=== PATIENT | male | born 1970 | race Two or more races ===

== ENCOUNTER 2017-12-01 18:26 | Emergency (ER) | payer MEDICAID, SELFPAY ==
[~2017-12-01] VITALS: Ht 165.1 cm; Wt 84.7 kg
[2017-12-01 18:28] VITALS: BP 123/74
[2017-12-01] MEDS ORDERED: HYDROcodone/APAP 5/325 TABLET ONE (19:15)
[2017-12-01] MEDS ORDERED: HYDROcodone/APAP 5/325 TABLET PO ONE (19:30)
== END 2017-12-01 19:51 ==
LOC: ED 19:30
DX: M25.562 Pain in left knee (principal)
CPT/HCPCS: 29505; 99284

== ENCOUNTER 2017-12-29 01:17 | Emergency (ER) | payer MEDICAID ==
[~2017-12-29] VITALS: Ht 165.1 cm; Wt 88.0 kg
[2017-12-29 01:19] VITALS: BP 152/90
[2017-12-29] MEDS ORDERED: IBUPROFEN 200 MG TABLET ONE (01:53)
[2017-12-29] MEDS ORDERED: IBUPROFEN 200 MG TABLET PO ONE (02:00)
== END 2017-12-29 02:04 | disposition home or self-care (01) ==
LOC: ED 02:02
DX: G89.29 Other chronic pain (principal); M25.562 Pain in left knee; Z72.9 Problem related to lifestyle, unspecified
CPT/HCPCS: 99282

== ENCOUNTER 2018-01-08 22:31 | Emergency (ER) | payer MEDICAID ==
[~2018-01-08] VITALS: Ht 170.2 cm; Wt 85.0 kg
[2018-01-08 22:39] VITALS: BP 158/107
== END 2018-01-08 23:26 | disposition home or self-care (01) ==
LOC: ED 23:00
DX: S50.12XA Contusion of left forearm, initial encounter (principal); W22.8XXA Striking against or struck by other objects, initial encounter; Y93.89 Activity, other specified; Y92.009 Unspecified place in unspecified non-institutional (private) residence as the place of occurrence of the external cause; Y99.8 Other external cause status
CPT/HCPCS: 99284

== ENCOUNTER 2018-05-29 15:28 | Emergency (ER) | payer MEDICAID ==
[~2018-05-29] VITALS: Ht 165.1 cm; Wt 82.7 kg
[2018-05-29 15:32] VITALS: BP 154/97
--- NOTE | 2018-05-29 15:40 | NUR ---
RECEIVED BEDSIDE REPORT FROM DAVINA ROBERTSON. ASSUMING PT CARE AT THIS TIME. PER REPORT PT WAS BROUGHT IN VIA EMS WITH C/O ETOH. PT UNABLE TO AMBULATE. PT SITTING ON GURNEY. PT UNABLE TO SPEAK CLEAR SENTENCES AT THIS TIME. PT IN GOWN AND ON MONITORS
--- NOTE | 2018-05-29 15:42 | NUR ---
48 YR OLD MALE ARRIVED VIA EMS, PER REPORT PT UNABLE TO AMBULATE R/T ETOH. PT WITH SLURRED SPEECH, ANSWERING SELECT QUESTIONS, IE: HOW TALL ARE YOU. ADDITIONAL TRIAGE QUESTIONS PT STARES AT RN AND DOES NOT ANSWER QUESTIONS. PT WITH EPISODE OF EMISIS. PT ASSISTED WITH CHANGING GOWN AND LINENS. PT PROVIDED WITH EMESIS BAG. PT WITH ETOH ODOR. CALL LIGHT AT BEDSIDE. REPORT TO KAYCE GHOSH.
--- NOTE | 2018-05-29 17:01 | NUR ---
PT SLEEPING ON GURNEY.PT HAS ETOH ODOR. PT REPOSITIONED FREQUENTLY FOR VSS. PT UNABLE TO SPEAK SENTENCES. NO ACUTE DISTRESS NOTED. RESPS EQUAL AND UNLABORED. WILL CONTINUE TO MONITOR.
--- NOTE | 2018-05-29 18:10 | NUR ---
BREAK RN: PT NOT IN ROOM, GOWN ON GURNEY, PT BELONGINGS GONE.
== END 2018-05-29 18:12 | disposition left against medical advice (07) ==
LOC: ED 18:06
DX: F10.220 Alcohol dependence with intoxication, uncomplicated (principal)
CPT/HCPCS: 99283

== ENCOUNTER 2018-08-24 10:36 | Emergency (ER) | payer MEDICAID ==
[~2018-08-24] VITALS: Ht 182.9 cm; Wt 100.0 kg
--- NOTE | 2018-08-24 11:42 | NUR ---
Patient resting in gurney, appears to be asleep. Continuous blood pressure, SPO2 and cardiac monitoring in place. Sitter within full view of patient for safety.
--- NOTE | 2018-08-24 12:07 | NUR ---
Recieved report from DAVINA Elizabeth. All questions answered. Assuming care of pt.
--- NOTE | 2018-08-24 13:51 | NUR ---
Pt resting on gurney sleeping connected to all monitors. NADN. Pt has even chest rise and fall. Sitter near doorway in direct line of sight for observation.
--- NOTE | 2018-08-24 14:30 | NUR ---
Pt sleeping on gurney connected to all monitors. Sitter near doorway in direct line of sight for observation. NADN. All safety measures in place. No needs expressed. Pt has even chest rise and fall.
--- NOTE | 2018-08-24 15:13 | NUR ---
Report from Giuliano Willis. Sitter at the bedside. NAD noted at this time. Breathing regular and unlabored. Will continue to monitor.
--- NOTE | 2018-08-24 15:43 | NUR ---
PT UP AND AMBULATING WITH STEADY GAIT. ERMD AWARE.
--- NOTE | 2018-08-24 16:15 | NUR ---
PT NO LONGER IN ROOM. PT NO LONGER IN DEPARTMENT. IV WAS REMOVED AFTER PT WAS FOUND TO HAVE A STEADY GAIT.
--- NOTE | 2018-08-24 16:45 | NUR ---
PT STILL NOT BACK IN ROOM AT. ASSUMED PT HAS ELOPPED AT THIS TIME.
[2018-08-24 17:00] VITALS: BP 133/89
== END 2018-08-24 17:02 | disposition home or self-care (01) ==
LOC: ED 13:37
DX: F10.120 Alcohol abuse with intoxication, uncomplicated (principal); I10 Essential (primary) hypertension
CPT/HCPCS: 99283

== ENCOUNTER 2018-12-11 00:36 | Emergency (ER) | payer MEDICAID, OTHER ==
[~2018-12-11] VITALS: Ht 180.3 cm; Wt 92.0 kg
[2018-12-11 00:48] VITALS: BP 125/74
--- NOTE | 2018-12-11 00:55 | NUR ---
Pt BIB EMS from [facility], c/o sudden onset abd pain, sore throat, FELDMAN, generalized malise and fever approx 1000 yesterday. Pt is currently aox4, respiratuions even and unlabored, no apparent distress, states abd pain and nausea resolved, now has "chills". Placed on monitor, guard at bedside. Provided at bedside for assessment and swab.
[2018-12-11] MEDS ORDERED: ACETAMINOPHEN 500 MG TABLET PO ONE (01:00)
[2018-12-11] MEDS ORDERED: ACETAMINOPHEN 500 MG TABLET ONE (01:13)
--- NOTE | 2018-12-11 01:15 | NUR ---
Pt medicated for chills and low grade fever, tolerates PO. Wiaiting for results.
== END 2018-12-11 02:36 | disposition home or self-care (01) ==
LOC: ED 02:25
DX: B34.9 Viral infection, unspecified (principal)
CPT/HCPCS: 87081; 87880; 99283

== ENCOUNTER 2019-04-25 14:38 | Emergency (ER) | payer MEDICAID, OTHER ==
[~2019-04-25] VITALS: Ht 165.1 cm; Wt 94.8 kg
[2019-04-25 14:41] VITALS: BP 168/89
== END 2019-04-25 16:46 | disposition home or self-care (01) ==
LOC: ED 16:25
DX: S09.90XA Unspecified injury of head, initial encounter (principal); I10 Essential (primary) hypertension; Y04.0XXA Assault by unarmed brawl or fight, initial encounter; Y93.89 Activity, other specified; Y92.89 Other specified places as the place of occurrence of the external cause; Y99.8 Other external cause status
CPT/HCPCS: 70450; 99284

== ENCOUNTER 2020-06-24 12:39 | Emergency (ER) | payer MEDICAID ==
[~2020-06-24] VITALS: Ht 165.1 cm; Wt 83.0 kg
[2020-06-24 12:50] VITALS: BP 126/83
--- NOTE | 2020-06-24 13:59 | NUR ---
Pt not in room when I came back to check on him. His shirt and jacket were left in the room. Will notify PD with whom he was in contact with before he came in today. The patient was not in custody at the time of visit.
[2020-06-24] MEDS ORDERED: LIDOCAINE-MPF 1%, 5ML INFIL ONE (14:00)
[2020-06-24] MEDS ORDERED: DIPH,PERTUSS(ACELL),TET VAC/PF 0.5 ML IM-VACC ONE (14:00)
== END 2020-06-24 14:05 | disposition left against medical advice (07) ==
LOC: ED 13:59
DX: S61.011A Laceration without foreign body of right thumb without damage to nail, initial encounter (principal); I10 Essential (primary) hypertension; Z90.49 Acquired absence of other specified parts of digestive tract; X58.XXXA Exposure to other specified factors, initial encounter; Y93.89 Activity, other specified; Y92.488 Other paved roadways as the place of occurrence of the external cause; Y99.8 Other external cause status
CPT/HCPCS: 99283

== ENCOUNTER 2020-06-24 15:19 | Emergency (ER) | payer MEDICAID ==
[~2020-06-24] VITALS: Ht 172.7 cm; Wt 95.4 kg
[2020-06-24 15:31] VITALS: BP 140/85
--- NOTE | 2020-06-24 16:18 | NUR ---
autism tutor note: Pt to room from lobby.
--- NOTE | 2020-06-24 16:28 | NUR ---
CALL TO OFFICER NINO, NUMBER RECIEVED FROM CAMILO GHOSH. THIS OFFICER STATES PT DOES NEED TO BE ARRESTED AFTER TREATMENT, HE IS STEPPING OFF SHIFT AND WILL PASS INFO ONTO ONCOMING OFFICER. ER PHONE NUMBER GIVEN.
[2020-06-24] MEDS ORDERED: LIDOCAINE-MPF 1%, 5ML INFIL ONE (16:30)
[2020-06-24] MEDS ORDERED: LIDOCAINE-MPF 1%, 5ML ONE (16:34)
--- NOTE | 2020-06-24 16:42 | NUR ---
OFFICER KEYON WILL BE OFFICER TO SHOW UP, STATES HE WILL TRY TO COME WITHIN NEXT 30 MIN. PHONE NUMBER [phone]
--- NOTE | 2020-06-24 17:07 | NUR ---
OFFICER KEYON AT DOORWAY, SUTURES BEING FINISHED UP. DC PAPERWORK HANDED TO OFFICER.
[2020-06-24] MEDS ORDERED: NEOSPORIN OINT. PKT 1 PACKET ONE (17:15)
== END 2020-06-24 17:23 | disposition home or self-care (01) ==
LOC: ED 16:30
DX: S61.011A Laceration without foreign body of right thumb without damage to nail, initial encounter (principal); F10.229 Alcohol dependence with intoxication, unspecified; F17.200 Nicotine dependence, unspecified, uncomplicated; I10 Essential (primary) hypertension; Z72.9 Problem related to lifestyle, unspecified; Z90.49 Acquired absence of other specified parts of digestive tract; X58.XXXA Exposure to other specified factors, initial encounter; Y93.89 Activity, other specified; Y92.89 Other specified places as the place of occurrence of the external cause; Y99.8 Other external cause status; Y90.0 Blood alcohol level of less than 20 mg/100 ml
CPT/HCPCS: 12001; 99283

== ENCOUNTER 2020-08-02 12:50 | Emergency (ER) | payer MEDICAID ==
[~2020-08-02] VITALS: Ht 172.7 cm; Wt 85.0 kg
--- NOTE | 2020-08-02 13:15 | NUR ---
PATIENT BIB EMS WITH CHIEF C/O ETOH. PER EMS PATIENT WAS FOUND AT BUS STATION ROLLING ON GROUND, MAX ASSIST TO GET UP AND INTO AMBULANCE. PATIENT A&O X2, RESPONDS TO NAME VSS EN ROUTE. NO INTERVENTIONS. PATIENT PLACED IN GOWN, CONNECTED TO MONITORS, VSS, PATIENT MUMBLING, UNABLE TO UNDERSTAND WHAT PATIENT IS SAYING, PATIENT COOPERATIVE, SIDE RAILS UP X2.
--- NOTE | 2020-08-02 14:01 | NUR ---
PATIENT LAYING IN GURNEY, EYES CLOSED, RESP EVEN AND UNLABORED, PATIENT PLACED ON 2 LPM NC, O2 SATURATION DOWN TO 85%, AFTER PATIENT PLACED ON O2 SATURATION UP TO 96%. SIDE RAILS UP X2, VSS, CALL LIGHT WITHIN REACH.
--- NOTE | 2020-08-02 15:52 | NUR ---
PATIENT LAYING IN GURNEY WITH EYES CLOSED, RESP EVEN AND UNLABORED, CONNECTED TO MONITOR, NADN, SIDE RAILS UP X2, CALL LIGHT WITHIN REACH. WAITING FOR PATIENT TO VTF.
--- NOTE | 2020-08-02 16:33 | NUR ---
PATIENT LAYING IN GURNEY, EYES CLOSED, RESP EVEN AND UNLABORED, VSS, SIDE RAILS UP X2, CALL LIGHT WITHIN REACH. MTF.
--- NOTE | 2020-08-02 17:13 | NUR ---
FOOD TRAY ORDERED.
--- NOTE | 2020-08-02 17:31 | NUR ---
FOOD TRAY GIVEN TO PATIENT.
[2020-08-02 17:41] VITALS: BP 107/61
--- NOTE | 2020-08-02 18:12 | NUR ---
Patient given discharge instructions and bus pass and they have confirmed that they understand the instructions. Patient stable and sober, ambulatory with steady gait from ED to bus stop.
== END 2020-08-02 18:13 | disposition home or self-care (01) ==
LOC: ED 16:40
DX: F10.220 Alcohol dependence with intoxication, uncomplicated (principal); I10 Essential (primary) hypertension; Y90.0 Blood alcohol level of less than 20 mg/100 ml
CPT/HCPCS: 99285